=== PATIENT | female | born 1995 | race Caucasian/White ===

== ENCOUNTER → 2021-05-26 09:34 | Outpatient (REF) | payer BC, SELFPAY ==
--- NOTE | 2021-05-26 09:30 | CA_ITS ---
Transthoracic Echocardiogram Patient (Last, First, Middle): Radha Hardwick, Gender: Female Date of : 1995 Age: 25 Procedure Date: 05/26/2021 Procedure Type: Transthoracic Echocardiogram Location: OP Height: 172.72 cm Weight: 68.04 kg BSA: 1.81 m2 Heart Rate: bpm BP: 104 / 46 mmHg Documentation Billing Clerk: Referring MD: Cristine Pickett NP Symptoms: EXERTIONAL AND NON EXERTIONAL CHEST PAIN R07.9 Study Quality: Good ECG Rhythm: Sinus Conclusions: - The left ventricular systolic function is normal. The visually estimated ejection fraction is between 60-65%. - No obvious valvular pathology seen on this study. Findings Left Ventricle Normal left ventricular cavity size. There is normal left ventricular wall thickness. The left ventricular systolic function is normal. The visually estimated ejection fraction is between 60-65%. There is no evidence of regional wall motion abnormalities. Diastolic function is normal for age. LV peak global longitudinal strain -20.3% (normal). Right Ventricle Normal right ventricular cavity size and systolic function. Atria Both atria are normal in size. Aortic Valve There is a normal trileaflet aortic valve. There is no aortic valve stenosis. There is no aortic valve regurgitation. Mitral Valve The mitral valve appears normal. There is no mitral valve regurgitation. There is no mitral valve stenosis. Pulmonic Valve The pulmonic valve is likely normal. There is trace pulmonic valve regurgitation. Tricuspid Valve Normal tricuspid valve structure. There is trace tricuspid valve regurgitation. The pulmonary artery systolic pressure is normal. Great Vessels The aortic annulus, sinuses of valsalva, and asc aorta are normal in size. Venous The inferior vena cava is normal in size and collapses greater than 50% with inspiration. Pericardium/Pleural There is no evidence of pericardial effusion. Prior Study Comparison No prior study available for comparison. Recommendations, Care & Conclusions No obvious valvular pathology seen on this study. Measurements 2D Linear Measurements RVIDd: 3.40 RVIDd Index: 1.88 IVSd: 1.07 0.6-0.9/0.6-1.0 cm LVIDd: 5.02 3.9-5.3/4.2-5.9 cm LVIDd Index: 2.77 2.4-3.2/2.2-3.1 cm/m2 LVIDs: 3.11 2.0-3.6 cm LVPWd: 0.91 0.7-1.1 cm Ao Root: 2.50 2.1-3.5 cm LA Diam: 3.40 2.7-3.8/3.0-4.0 cm LAIDs Index: 1.88 1.5-2.3 cm/m2 LV Mass: 225.15 67-162/88-224 g LV Mass Index: 124.39 43-95/49-115 g/m2 LVOT Diam: 2.00 3.0+(-)1.3 cm 2D Systolic Function EF 4C: 69.90 >55% EF 2C: 45.10 >55% Mitral Valve MV Pk E: 0.85 MV PK A: 0.35 MV Decel Time: 199.00 E/A: 2.40 E'Lateral: 15.20 E'Medial: 12.70 E/E' Med: 6.70 E/E' Lat: 5.60 Aortic Valve AoV Pk Eladio: 1.45 AoV Mn Eladio: 0.96 AoV VTI: 0.29 AoV Pk Grad: 8.00 Aov Mn Grad: 4.00 GUERRERO Cont.VTI: 2.58 LVOT LVOT Pk Eladio: 1.32 LVOT Mn Eladio: 0.89 LVOT VTI: 0.24 LVOT Pk Grad: 7.00 LVOT Mn Grad: 4.00 LVOT Diam: 2.00 LVOT Area: 3.14 Diastolic Function MV Pk E: 0.85 MV Pk A: 0.35 E/A: 2.40 E'Medial: 12.70 E/E' Med: 6.70 E' Laterial: 15.20 E/E' Lat: 5.60 Tricuspid Valve TR Pk Eladio: 1.81 TR Pk Grad: 13.00 RA Press: 3.00 RVSP: 16.00 Great Vessels Aorta Ao Root-2D: 2.50 2.0-3.7 cm Ao Asc: 2.60 2.1-3.4 cm Ao Arch: 2.50 Updated in Other Vendor System with Status of Final Jan Lagunas MD electronically signed on 05/26/2021 1:37:13 PM with status of Final
== END ==
LOC: HO.CARD 09:34
PROVIDERS: Visit Provider Nurse Practitioner Family
DX: R07.89 Other chest pain (principal); R42 Dizziness and giddiness
CPT/HCPCS: 93306; 93356